=== PATIENT | male | born 1960 | race Caucasian/White ===

== ENCOUNTER 2018-09-09 21:55 | Emergency (ER) | payer OTHER ==
--- NOTE | 2018-09-09 22:14 | EDPHY ---
H & P Stated Complaint: BILAT LOW ABD PAIN LEFT FLANK PAIN - Personal History Current Tetanus/Diphtheria Vaccine: Unsure Current Tetanus Diphtheria and Acellular Pertussis (TDAP): Unsure Tetanus Vaccine Date: < 10 years - Medical/Surgical History Hx Asthma: Yes Hx Chronic Respiratory Disease: No Hx Diabetes: No Hx Cardiac Disease: No Hx Renal Disease: No Hx Cirrhosis: No Hx Alcoholism: No Hx HIV/AIDS: No Hx Splenectomy or Spleen Trauma: No Other PMH: htn, large prostate - Social History Smoking Status: Former smoker Time Seen by Provider: 09/09/18 22:14 Constitutional: Initial Vital Signs Temperature (C) 37.1 C 09/09/18 22:09 Heart Rate 75 09/09/18 22:09 Respiratory Rate 18 09/09/18 22:09 Blood Pressure 126/86 H 09/09/18 22:09 O2 Sat (%) 96 09/09/18 22:09 O2 Delivery Mode Room Air O2 (L/minute) 1 Allergies/Adverse Reactions: No Known Allergies Allergy (Unverified 09/09/18 22:12) Home Medications: Medication Instructions Recorded Irbesartan [Avapro 150 mg (*)] 150 mg PO DAILY 09/09/18 Tamsulosin HCl [Flomax 0.4 MG (*)] 0.4 mg PO DAILY 09/09/18 Hydrocodone/Acetaminophen 1 - 2 each PO Q4-6PRN PRN #10 09/10/18 [Hydrocodon-Acetaminophen 5-325] tablet Medical Decision Making - Diagnostics Imaging Results: Imaging Impressions Abdomen/Pelvis CT 09/09/18 22:20 Impression: 1. Distal left ureteral calculus with associated left-sided obstructive uropathy. 2. Nephrolithiasis. 3. Query constipation. 4. Prostatic enlargement. 5. See above report for additional findings. Results called and discussed with Dr. Gilmar Dean on 09/09/2018 at 23:25. ED Course/Re-evaluation: CHIEF COMPLAINT: Left groin, abdominal, and back pain HISTORY OF PRESENT ILLNESS: The patient is a 58 y/o male with a history of BPH complaining of left groin pain that is radiating into his left abdomen and back. Today he woke up and felt "like I had a worm in my urinary system". He then went for a hike, but developed pain in his pelvis one hour later. The pain then migrated to his left abdomen and back. When he takes a deep breath he develops a pain in his left flank. This pain is not exacerbated with palpation. No fever, headache, body aches, lightheadedness, chest pain, heart palpitations, shortness of breath, cough, urinary or bowel complaints, numbness, paresthesias. REVIEW OF SYSTEMS: A comprehensive 10 system review of systems is otherwise negative aside from elements mentioned in the history of present illness and medical decision making. PHYSICAL EXAM: HR, BP, O2 Sat, RR. Temp noted General Appearance: Alert, well hydrated, appropriate, and non-toxic appearing. Head: Atraumatic without scalp tenderness or obvious injury Eyes: Pupils equal, round, reactive to light and accommodation, EOMI, no trauma , no injection. Ears: Clear bilaterally, no perforation, normal landmarks Nose: Atraumatic, no rhinorrhea, clear. Throat: There is no erythema or exudates, no lesions, normal tonsils, mucus membranes moist. Neck: Supple, 2+ carotid upstroke, nontender, no lymphadenopathy. Respiratory: No retractions, no distress, no wheezes, and no accessory muscle use. Lungs are clear to auscultation bilaterally. Cardiovascular: Regular rate and rhythm, no murmurs, rubs, or gallops. Bilateral carotid, radial, dorsalis pedis, and posterior tibial pulses intact. Good capillary refill all extremities. Gastrointestinal: Abdomen is soft, nontender, non-distended, no masses, no rebound, no guarding, no peritoneal signs. Musculoskeletal: Normal active ROM of all extremities, atraumatic. Neurological: Alert, appropriate, and interactive. The patient has normal DTRs and non-focal cranial nerves, motor, sensory, and cerebellar exam. Skin: No rashes, good turgor, no nodules on palpation. Past medical history: Hypertension, BPH Past surgical history: Denies Family history: Denies Social history: at bedside, lives in [place], employed DIAGNOSTICS/PROCEDURES/CRITICAL CARE TIME: Abdominopelvic CT: Pending at shift change. DIFFERENTIAL DIAGNOSIS: The differential diagnosis for the patient's flank pain included but was not limited to musculoskeletal causes, kidney stone, pyelonephritis, shingles, diverticulitis, appendicitis, and aortic aneurysm. MEDICAL DECISION MAKING: The patient is a 58 y/o male with a history of BPH presenting with left groin pain that is radiating into his left abdomen and back. When he takes a deep breath he develops a pain in his left flank. On exam he has left CVA tenderness. This pain is not exacerbated with palpation. I suspect he has a kidney stone. Labs and abdominopelvic CT ordered; 1L IV NS, 0.5mg IV Dilaudid, 30mg IV Toradol, and 4mg IV Zofran administered. 2300: Patient care turned over to Dr. Pereyra at shift change pending labs and abdominopelvic CT. (Bulmaro Bee) Other Provider: [id number] Bee pending CT scan, laboratory studies and symptom management. (Gilmar Pereyra) - Data Points Laboratory Results: 09/10/18 09/09/18 00:30 23:18 POC Hgb 17.0 gm/dL gm/dL (13.7-17.5) POC Hct 50 % % (40-51) POC Sodium 139 mEq/L mEq/L (135-145) POC Potassium 3.8 mEq/L mEq/L (3.3-5.0) POC Chloride 103 mEq/L mEq/L (97-110) POC Total CO2 22 mEq/L mEq/L (22-31) POC BUN 24 mg/dL H mg/dL (7-23) POC Creatinine 1.1 mg/dL mg/dL (0.7-1.3) POC Glucose 102 mg/dL H mg/dL (70-100) Urine Color YELLOW Urine Appearance HAZY Urine pH 5.0 (5.0-7.5) Ur Specific [place] 1.023 (1.002-1.030) Urine Protein NEGATIVE (NEGATIVE) Urine Ketones 2+ H (NEGATIVE) Urine Blood 3+ H (NEGATIVE) Urine Nitrate NEGATIVE (NEGATIVE) Urine Bilirubin NEGATIVE (NEGATIVE) Urine Urobilinogen NEGATIVE EU EU (0.2-1.0) Ur Leukocyte Esterase NEGATIVE (NEGATIVE) Urine RBC 50-182 /hpf H /hpf (0-3) Urine WBC 1-3 /hpf /hpf (0-3) Ur Epithelial Cells NONE SEEN /lpf /lpf (NONE-1+) Urine Mucus 2+ /lpf H /lpf (NONE-1+) Urine Glucose NEGATIVE (NEGATIVE) Medications Given: Discontinued Medications Hydromorphone HCl (Dilaudid) 0.5 mg IVP EDNOW ONE Stop: 09/09/18 22:21 Last Admin: 09/09/18 22:31 Dose: 0.5 mg Sodium Chloride (Ns) 1,000 mls @ 0 mls/hr IV ONCE ONE; Wide Open PRN Reason: Protocol Stop: 09/09/18 22:20 Last Admin: 09/09/18 22:31 Dose: 1,000 mls Ketorolac Tromethamine (Toradol) 30 mg IVP EDNOW ONE Stop: 09/09/18 22:20 Last Admin: 09/09/18 22:30 Dose: 30 mg Ondansetron HCl (Zofran) 4 mg IVP EDNOW ONE Stop: 09/09/18 22:20 Last Admin: 09/09/18 22:31 Dose: 4 mg Promethazine HCl (Phenergan) 12.5 mg IVP ONCE ONE Stop: 09/09/18 23:56 Last Admin: 09/10/18 00:05 Dose: 12.5 mg Point of Care Test Results: Chemistry 09/09/18 23:18 POC Sodium 139 mEq/L mEq/L (135-145) POC Potassium 3.8 mEq/L mEq/L (3.3-5.0) POC Chloride 103 mEq/L mEq/L (97-110) POC Total CO2 22 mEq/L mEq/L (22-31) POC BUN 24 mg/dL H mg/dL (7-23) POC Creatinine 1.1 mg/dL mg/dL (0.7-1.3) POC Glucose 102 mg/dL H mg/dL (70-100) ISTAT H&H 09/09/18 23:18 POC Hgb 17.0 gm/dL gm/dL (13.7-17.5) POC Hct 50 % % (40-51) Departure - Departure Disposition: Home, Routine, Self-Care Clinical Impression: Kidney stone Condition: Good Instructions: Kidney Stones (ED), How to Strain Your Urine (ED) Additional Instructions: Strain your urine and take the kidney stone to urologist. Take ibuprofen, 600 mg every 8 hr. You may alternate with acetaminophen, 1000 mg every 8 hr. For severe pain you may take the hydrocodone in place of the acetaminophen. Referrals: Naresh Keating MD [Medical Doctor] - As per Instructions Prescriptions: Hydrocodone/Acetaminophen [Hydrocodon-Acetaminophen 5-325] 1 - 2 each PO Q4- 6PRN PRN #10 tablet PRN Reason: Pain, Severe Report Scribed for: Bulmaro Bee Report Scribed by: Kayce Glover Date of Report: 09/09/18 Time of Report: 22:25
[2018-09-09] MEDS ORDERED: NS 1,000 ML IV ONE (22:19)
[2018-09-09] MEDS ORDERED: ONDANSETRON 4 MG/2 ML VIAL IVP ONE (22:19)
[2018-09-09] MEDS ORDERED: KETOROLAC 30 MG/1 ML SDV IVP ONE (22:19)
[2018-09-09] MEDS ORDERED: HYDROmorphONE/DILAUDID 2 MG/ML INJ IVP ONE (22:20)
[2018-09-09] MEDS ORDERED: PROMETHAZINE HCL 25 MG/ML INJ IVP ONE (23:55)
[2018-09-10 00:43] VITALS: BP 134/78
== END 2018-09-10 01:01 | disposition home or self-care (01) ==
DX: N20.2 Calculus of kidney with calculus of ureter (principal); N40.0 Benign prostatic hyperplasia without lower urinary tract symptoms; N13.8 Other obstructive and reflux uropathy; I10 Essential (primary) hypertension; Z87.891 Personal history of nicotine dependence
CPT/HCPCS: 82435-PO; 82565-PO; 82947-PO; 84132-PO; 84295-PO; 84520-PO; 85014-ER; 96374; J1170; J1885; J2405; J2550